=== PATIENT | male | born 1955 | race Caucasian/White ===

== ENCOUNTER → 2016-08-18 | Outpatient (CLI) | payer OTHER ==
--- NOTE | 2016-08-18 15:43 | DIAGNOSTIC IMAGING REPORT ---
PROCEDURE: XR CHEST 2 VIEW INDICATION: FATIGUE TECHNIQUE: PA and lateral views. COMPARISON: None. FINDINGS: There is a right pleural effusion. Heart and mediastinum are normal. Thorax is normal. IMPRESSION: 1. Right pleural effusion.
== END ==
LOC: XR SRH 14:58
DX: R53.83 Other fatigue (principal); J90 Pleural effusion, not elsewhere classified

== ENCOUNTER → 2016-08-27 | Outpatient (CLI) | payer OTHER ==
--- NOTE | 2016-08-27 17:14 | DIAGNOSTIC IMAGING REPORT ---
PROCEDURE: CT THORAX WITHOUT CONTRAST INDICATION: RIGHT PLEURAL EFFUSION TECHNIQUE: Noncontrast axial images were obtained of the chest with coronal and sagittal reformations. COMPARISON: Chest x-ray 08/18/2016 FINDINGS: Calcified right middle lobe granuloma. Minor lingular and right basilar scarring. Resolved right pleural effusion. Mildly enlarged precarinal (1.3 cm short axis) and mildly prominent right paratracheal, anterior mediastinal and subcarinal lymph nodes. Normal thoracic aorta. Minor coronary atherosclerosis. Heart size is normal. The visualized upper abdomen is unremarkable. Several old bilateral rib fractures. Mild degenerative changes of the spine. IMPRESSION: 1. Resolved right pleural effusion 2. Old granulomatous disease 3. Mildly prominent mediastinal lymph nodes, likely reactive
== END ==
LOC: CT SRH 16:06
DX: J90 Pleural effusion, not elsewhere classified (principal)